=== PATIENT | female | born 1955 | race Caucasian/White ===

== ENCOUNTER 2016-12-16 01:35 | Emergency (ER) | payer OTHER ==
--- NOTE | ~2016-12-16 | ER ---
PATIENT'S NAME: MORTEZA MOSLEY [facility] AGE: 61 Y [address] ROOM: [place] [address] LOCATION: [facility] ADMIT DATE: 12/16/2016 ER/Outpatient Report DISCHARGE DATE: 12/16/2016 FAMILY PHYSICIAN: Pablo Johnson MD ATTENDING PHYSICIAN: Simon St Time of Arrival: 0139 hours. Time of Evaluation: 0140 hours. CHIEF COMPLAINT: Left foot pain. HISTORY OF PRESENT ILLNESS: The patient is a 61-year-old female, who presents to the emergency department today with a chief complaint of left foot pain. The patient had a great toe fusion last . She saw Dr. Johnson on Wednesday, splint was placed, bandage was checked, everything was looking okay. She reports she took a Percocet at midnight tonight and has had pain more at the aspect of the ankle. It is sharp pain. It is currently 6/10 in severity. PAST MEDICAL HISTORY: Anxiety. PAST SURGICAL HISTORY: Left toe fusion, left meniscus, and carpal tunnel. SOCIAL HISTORY: The patient denies any tobacco, alcohol, or illicit drug use. ALLERGIES: NO KNOWN DRUG ALLERGIES. MEDICATIONS: Please see list. PRIMARY CARE DOCTOR: Pablo Johnson M.D. ORTHOPEDIST: Evert Berger M.D. REVIEW OF SYSTEMS: All systems are reviewed by myself and are negative with the exception of those discussed in the HPI and past medical history. PATIENT'S NAME: MORTEZA MOSLEY [facility] AGE: 61 Y [address] ROOM: [place] [address] LOCATION: [facility] ADMIT DATE: 12/16/2016 ER/Outpatient Report DISCHARGE DATE: 12/16/2016 FAMILY PHYSICIAN: Pablo Johnson MD ATTENDING PHYSICIAN: Simon St PHYSICAL EXAMINATION: VITAL SIGNS: Weight 77.8 kg, blood pressure 125/78, pulse 95, respiratory rate 16, temperature 98.2, and oxygen saturation 97% on room air. GENERAL: The patient is a 61-year-old female, appears as stated age, in no acute distress at this time. HEENT: Normocephalic and atraumatic. Pupils are equal, round, and reactive to light and accommodation. NECK: Supple. There is no nuchal rigidity. CARDIOVASCULAR: Regular rate and rhythm. No murmurs, rubs, or gallops. LUNGS: Clear to auscultation bilaterally. No wheezes, rales, or rhonchi. ABDOMEN: Soft, nontender, and nondistended. No rebound, rigidity, or guarding. MUSCULOSKELETAL: The patient does have a splint in place. SKIN: Warm and dry. The bandage is removed. The incision on the left upper with peter was normal. Achilles on the left looks normal. The incision over the great toe appears unremarkable. There is no evidence of erythema. There is no purulent drainage. IMPRESSION: 1. Postop pain. 2. Initial visit. EMERGENCY DEPARTMENT COURSE: The patient was brought back to the examination room. Seen and evaluated by myself. History and physical performed as described above. The patient's wounds do appear clean, dry, and intact. We have given the patient 2 mg of morphine IM for breakthrough pain. I have discussed I would like her to follow up with Dr. Berger tomorrow for reevaluation. I have discussed that we will have reapplied the dressing and wrapped and replaced the splint. I have discussed return to care instructions including worsening symptoms or any other concerns to return to the emergency department as soon as possible. The patient is agreeable without further questions. DISPOSITION: The patient discharged home in good condition. DO JOSE MARTINEZ/janette /[id number] d: 12/16/16 0342 t: 12/16/16 0601, OUTPATIENT REPORT
== END 2016-12-16 02:14 | disposition disaster alternative care site (69) ==
LOC: GMED 01:35
DX: G89.18 Other acute postprocedural pain (principal); M79.672 Pain in left foot; F41.9 Anxiety disorder, unspecified
CPT/HCPCS: J2270